=== PATIENT | female | born 1995 | race Two or more races ===

== ENCOUNTER 2020-04-28 17:56 | Observation (INO) ==
[2020-04-28] MEDS ORDERED: ONDANSETRON 4 MG/2 ML VIAL IV PRN (18:14)
[2020-04-28] MEDS ORDERED: LACTATED RINGERS 1,000 ML IV SCH (18:30)
[2020-04-28] MEDS ORDERED: THIAMINE INJ 100 MG, FOLIC ACID INJ 1 MG, MULTIVITAMIN INJ 10 ML in SODIUM CHLORIDE 0.9... IV ONE (19:00)
[2020-04-28 19:37] LABS: Albumin 3.4 G/DL (3.4-5.0); Bilirubin,Total 1.9 MG/DL (0.2-1.0); Calcium 9.4 MG/DL (8.5-10.1); Osmolality,Calculated 251.5 MOS/KG (273-304)
[2020-04-28 19:48] LABS: Hematocrit 39.8 VOL% (35.7-47.0); Hemoglobin 14.6 GM/DL (12.0-16.0); Immature Granulocytes % 0.3 %; Immature Granulocytes Absolute 0.03 #; Lymphocytes # 1.2 10*3/uL (1.4-4.0); Lymphocytes % 13.8 % (21.3-54.2); Mean Corpuscular HGB Conc 36.7 GM/DL (32-36); Mean Corpuscular Volume 76.1 FL (87-102); Mean Platelet Volume 10.3 FL (9.6-12.0); Monocytes % 8.9 % (1.7-12.7); Platelet Count 273 T/CUMM (130-400); Red Blood Count 5.23 MC/CUMM (3.8-5.5); Red Cell Distribution Width 11.8 % (9.3-17.3); White Blood Count 8.8 T/CUMM (4-12)
[2020-04-28] MEDS: POTASSIUM CHLORIDE RIDER 10 MEQ in PREMIX 1 EACH IV PRN ×2 (21:08→22:41)
[2020-04-29 00:05] LABS: Apearance,Urine Slightly Hazy (Clear); Bacteria,Urine Occasional /HPF (Few); Bilirubin,Urine Negative (Negative); Blood, Urine Negative (Negative); Glucose,Urine (UA) Negative (Negative); Hyaline Casts,Urine 3 /LPF (0-3); Ketones,Urine 20 mg/dL (Negative); Mucus,Urine Moderate /LPF (Occasional); Nitrite,Urine Negative (Negative); Protein,Urine Negative; RBC,Urine 3 /HPF (0-4); Squamous Epithelial Cell,Urine Occasional /HPF (0-10); Urine Color Amber (Yellow); Urine Specific Gravity 1.009 (1.001-1.035); WBC,Urine 27 /HPF (0-6)
[2020-04-29] MEDS: POTASSIUM CHLORIDE RIDER 10 MEQ in PREMIX 1 EACH IV PRN (02:17)
[2020-04-29] MEDS ORDERED: DEXT 5% LACT RING KCL 20 MEQ 20 MEQ/1,000 ML BAG IV SCH (05:30)
[2020-04-29 15:40] VITALS: BP 91/67
== END 2020-04-29 16:30 | disposition home or self-care (01) ==
LOC: N.OB
PROVIDERS: ADMIT Obstetrics & Gynecology; ATTEND Obstetrics & Gynecology

== ENCOUNTER 2020-11-06 11:22 | Inpatient (IN) ==
[2020-11-06] MEDS ORDERED: ONDANSETRON 4 MG/2 ML VIAL IV PRN (11:29)
[2020-11-06] MEDS ORDERED: LACTATED RINGERS 1,000 ML IV SCH ×2 (11:30→14:30)
[2020-11-06] MEDS ORDERED: AMPICILLIN INJ 2,000 MG in SODIUM CHLORIDE 0.9% 100 ML IV ONE (11:30)
[2020-11-06] MEDS ORDERED: AMPICILLIN 2,000 MG VIAL ONE (11:38)
[2020-11-06] MEDS ORDERED: SODIUM CHLORIDE 0.9% 100 ML IV ONE (11:38)
[2020-11-06 11:58] LABS: Basophils % 0.2 % (0.0-0.8); Eosinophils # 0.1 10*3/uL (0.0-0.87); Eosinophils % 0.9 % (0.00-10.9); Hemoglobin 10.8 GM/DL (12.0-16.0); Immature Granulocytes % 0.4 %; Immature Granulocytes Absolute 0.02 #; Lymphocytes # 1.7 10*3/uL (1.4-4.0); Lymphocytes % 31.3 % (21.3-54.2); Mean Corpuscular HGB Conc 32.7 GM/DL (32-36); Mean Corpuscular Volume 77.5 FL (87-102); Mean Platelet Volume 9.2 FL (9.6-12.0); Monocytes % 7.6 % (1.7-12.7); Neutrophils % 59.6 % (38.7-73.9); Platelet Count 262 T/CUMM (130-400); Red Blood Count 4.26 MC/CUMM (3.8-5.5); Red Cell Distribution Width 13.4 % (9.3-17.3); White Blood Count 5.4 T/CUMM (4-12)
[2020-11-06] MEDS ORDERED: miSOPROStoL 200 MCG TABLET ONE (12:08)
[2020-11-06] MEDS ORDERED: LIDOCAINE 1% 50 ML VIAL ONE (12:08)
[2020-11-06] MEDS ORDERED: METHYLERGONOVINE 0.2 MG/1 ML AMP ONE (12:09)
[2020-11-06] MEDS ORDERED: OXYTOCIN/LR 20 UNIT/1,000 ML BAG IV ONE ×2 (12:09→14:05)
[2020-11-06] MEDS ORDERED: CARBOPROST TROMETHAMINE 250 MCG/ML AMP IM ONE (12:09)
[2020-11-06] MEDS ORDERED: MEPERIDINE 50 MG/1 ML VIAL IV PRN (12:20)
[2020-11-06] MEDS ORDERED: LIDOCAINE 1% 50 ML VIAL MISC INJ ONE (12:21)
[2020-11-06 12:25] LABS: Albumin 2.5 G/DL (3.4-5.0); Bilirubin,Total 0.8 MG/DL (0.2-1.0); Calcium 8.5 MG/DL (8.5-10.1); Osmolality,Calculated 265.1 MOS/KG (273-304); Total Protein 7.7 G/DL (6.4-8.3)
[2020-11-06] MEDS ORDERED: OXYTOCIN/LR 20 UNIT/1,000 ML BAG IV SCH (12:30)
[2020-11-06 12:50] LABS: Cord Venous Blood HCO3 23.9 MMOL/L; Cord Venous Blood PO2 30.6
[2020-11-06] MEDS ORDERED: ACETAMINOPHEN 500 MG TABLET PO PRN (14:13)
[2020-11-06] MEDS ORDERED: BISACODYL 10 MG SUPP RECTAL PRN (14:13)
[2020-11-06] MEDS: DOCUSATE SODIUM 100 MG CAPSULE PO SCH (20:40)
[2020-11-06] MEDS: IBUPROFEN 800 MG TABLET PO PRN (20:41)
[2020-11-07 06:28] LABS: Basophils % 0.2 % (0.0-0.8); Eosinophils # 0.1 10*3/uL (0.0-0.87); Hematocrit 30.3 VOL% (35.7-47.0); Immature Granulocytes % 0.5 %; Immature Granulocytes Absolute 0.04 #; Mean Corpuscular Volume 77.9 FL (87-102); Mean Platelet Volume 9.6 FL (9.6-12.0); Monocytes % 7.2 % (1.7-12.7); Neutrophils % 68.1 % (38.7-73.9); Platelet Count 247 T/CUMM (130-400); Red Blood Count 3.89 MC/CUMM (3.8-5.5); Red Cell Distribution Width 13.3 % (9.3-17.3)
[2020-11-07 06:32] LABS: White Blood Count 8.6 T/CUMM (4-12)
[2020-11-07] MEDS: MULTIVITAMIN (PRENATAL) TABLET PO SCH (10:14)
[2020-11-07] MEDS: MAGNESIUM HYDROXIDE SUSP 30 ML UDCUP PO PRN (10:14)
[2020-11-07] MEDS: DOCUSATE SODIUM 100 MG CAPSULE PO SCH ×2 (10:15→21:56)
[2020-11-07] MEDS: IBUPROFEN 800 MG TABLET PO PRN ×2 (12:20→21:56)
[2020-11-08 08:12] VITALS: BP 89/57
[2020-11-08] MEDS: DOCUSATE SODIUM 100 MG CAPSULE PO SCH (08:43)
[2020-11-08] MEDS: MULTIVITAMIN (PRENATAL) TABLET PO SCH (08:43)
[2020-11-08] MEDS: MAGNESIUM HYDROXIDE SUSP 30 ML UDCUP PO PRN (08:43)
[2020-11-08] MEDS: IBUPROFEN 800 MG TABLET PO PRN (08:46)
== END 2020-11-08 12:50 | disposition home or self-care (01) | DRG 807 ==
LOC: N.LDOUT 11:22 → N.LD 11:22 → N.OB 15:30
PROVIDERS: ADMIT Obstetrics & Gynecology; ATTEND Obstetrics & Gynecology